=== PATIENT | male | born 1995 ===

== ENCOUNTER 2023-07-15 11:20 | Outpatient (REF) | payer SELFPAY ==
[2023-07-16 09:14] LABS: HIV-1/2 Ag & Ab Screen Negative (Negative)
[2023-07-16 11:52] LABS: Syphilis Serology (RPR) Negative (Negative)
[2023-07-16 12:14] LABS: GC Result Negative (Negative)
[2023-07-16 13:11] LABS: Chlamydia Result Positive (Negative)
[2023-07-22 10:08] LABS: Hepatitis C Ab w Rflx HCV PCR Negative (Negative)
== END 2023-07-15 11:21 | disposition home or self-care (01) ==
LOC: LBN 11:20
PROVIDERS: Visit Provider Nurse Practitioner Family
DX: Z11.3 Encounter for screening for infections with a predominantly sexual mode of transmission (principal); Z11.4 Encounter for screening for human immunodeficiency virus [HIV]; Z11.59 Encounter for screening for other viral diseases
CPT/HCPCS: 86803; 87389; 87491; 87591; 86592

== ENCOUNTER 2023-08-12 18:42 | Outpatient (REF) | payer SELFPAY ==
[2023-08-13 14:47] LABS: Chlamydia Result Negative (Negative); GC Result Negative (Negative)
== END 2023-08-12 18:43 | disposition home or self-care (01) ==
LOC: LBN 18:42
PROVIDERS: Visit Provider Nurse Practitioner Family
DX: Z11.3 Encounter for screening for infections with a predominantly sexual mode of transmission (principal)
CPT/HCPCS: 87491; 87591